=== PATIENT | female | born 2000 | race African-American/Black ===

== ENCOUNTER → 2020-02-21 14:14 | Outpatient (BNVA) | payer OTHER, SELFPAY | PROVIDERS: PCP Family Medicine; Visit Provider Advanced Practice Midwife | DX: Z76.89 Persons encountering health services in other specified circumstances (principal) ==

== ENCOUNTER 2020-02-26 13:48 | Outpatient (REF) | payer OTHER, SELFPAY ==
[2020-02-26 14:54] LABS: MANUAL DIFF FLAG NO
[2020-02-26 15:03] LABS: Basophils Absolute Auto 0.1 X10*3/uL (0.0-0.2); Basophils Percent Auto 0.7 % (0-2); Eosinophils Absolute Auto 0.1 X10*3/uL (0.0-0.4); Eosinophils Percent Auto 1.2 % (0-4); Hematocrit 34.6 % (37-47); Hemoglobin 11.9 g/dl (12.0-16.0); Imm Gran Abs Auto 0.03 X10*3/uL (0.00-0.03); Imm Gran Pct Auto 0.3 % (0.0-0.4); Lymphocytes Absolute Auto 2.7 X10*3/uL (1.2-4.9); Lymphocytes Percent Auto 29.1 % (20-40); Mean Corpuscular HGB Conc 34.4 g/dl (31.0-35.0); Mean Corpuscular Hemoglobin 30.1 pg (27.0-33.0); Mean Corpuscular Volume 87.6 fL (80-98); Mean Platelet Volume 9.8 fL (9.4-12.3); Monocytes Absolute Auto 0.6 X10*3/uL (0.1-1.2); Monocytes Percent Auto 6.9 % (2-11); Neutrophils Absolute Auto 5.6 X10*3/uL (2.0-8.3); Neutrophils Percent Auto 61.8 % (45-73); Platelet Count 275 X10*3/uL (160-400); Red Blood Count 3.95 X10*6/uL (4.20-5.50); Red Cell Distribution Width 12.4 % (11.0-16.0); White Blood Count 9.1 X10*3/uL (4.8-10.8)
[2020-02-26 15:24] LABS: Amphetamine Screen Urine Not Detected (Not Detect); Barbiturates, Urine Not Detected (Not Detect); Benzodiazepines Screen Urine Not Detected (Not Detect); Cannabinoid Screen Urine Not Detected (Not Detect); Cocaine Screen Urine Not Detected (Not Detect); Opiate Screen Urine Not Detected (Not Detect); Phencyclidine Screen Urine Not Detected (Not Detect)
[2020-02-27 08:35] LABS: HBsAGNum1 0.12 S/CO (0.00-0.99); HIV AB/AG Nonreactive (Nonreactive); HIV Num 1 0.09 S/CO (0.00-0.99); Hepatitis B Surface Antigen Negative (Negative)
[2020-02-27 09:17] LABS: Syphilis Screen Nonreactive (Nonreactive)
[2020-02-27 09:25] LABS: ~HepC Num1 0.07 S/CO (0.00-0.79); ~Hepatitis C Antibody Nonreactive (Nonreactive)
[2020-02-28 08:52] LABS: Rubella IgG Antibody 7.62 index; Toxoplasma IgG Antibody <7.20 IU/mL
[2020-02-28 13:14] LABS: Toxoplasma IgM Antibody <8.00 AU/mL
== END 2020-02-26 13:49 | disposition home or self-care (01) ==
LOC: HO.LAB 13:48
PROVIDERS: PCP Family Medicine; Visit Provider Advanced Practice Midwife
DX: Z34.90 Encounter for supervision of normal pregnancy, unspecified, unspecified trimester (principal)
CPT/HCPCS: 36415; 80307; 85025; 86762; 86777; 86778; 86780; 86787; 86803; 87086; 87147; 87340; 87389

== ENCOUNTER 2020-02-28 10:54 | Outpatient (REF) | payer OTHER, SELFPAY ==
[2020-02-28 18:22] LABS: CT PCR NOT DETECTED (Not Detect.); NG PCR NOT DETECTED (Not Detect.)
== END 2020-02-28 10:55 | disposition home or self-care (01) ==
LOC: HO.LAB 10:54
PROVIDERS: Visit Provider Advanced Practice Midwife
DX: Z34.80 Encounter for supervision of other normal pregnancy, unspecified trimester (principal); Z13.31 Encounter for screening for depression
CPT/HCPCS: 87491; 87591; 88142

== ENCOUNTER 2020-02-29 12:52 | Outpatient (REF) | payer OTHER, SELFPAY ==
--- NOTE | 2020-02-29 13:00 | US_ITS ---
EXAMINATION: OBSTETRICAL ULTRASOUND, FIRST TRIMESTER HISTORY: 20-year-old at 13.1 weeks of gestation First child born with cleft lip and palate NT screening COMPARISON: 09/18/2019 TECHNIQUE: Real time transabdominal imaging with color and M-mode Doppler. FINDINGS: A single, live IUP CRL of 67.6 mm c/w 13.1wks is noted. Heart Rate: 150 beats per minute. Normal yolk sac seen. NT was 1.9.mm. NB Present The embryo appears sonographically wnl for this GA. Both maternal ovaries are seen and appear normal. GESTATIONAL AGE: 1. Established GA: 13.1 wks 2. GA from AUA: 13.1 wks ESTIMATED DATE OF DELIVERY: 1. Established ZOLTAN: 09/04/2020 2. ZOLTAN from AUA: 09/04/2020 US/US OB 1T nuc measure IMPRESSION: 1. A single live IUP 2. Size equals dates 3. NT of 1.9 mm MFM Consultation: I reviewed the ultrasound findings along with significance of NT measurement. The NT of less than 3mm is generally reassuring. However, the sensitivity for T21 detection is only 60%. I reviewed the availability of serum aneuploidy screening which includes cell-free DNA and placental protein based tests. I discussed the sensitivity, false-positive rate, and other limitations associated with each test. I also reviewed the availability of invasive diagnostic tests that are associated small but definite risk of miscarriage. We also reviewed the differences between screening tests and diagnostic tests. After our discussion, she opted for the First trimester screening that is based on cell-free DNA or non-invasive testing (NIPT). She has a son who was born with cleft lip/palate. He is doing well after the repair. States that the cleft palate was larger than the clefting of the lip. I informed her that that we should be able to identify majority of cleft lip/palate on survey. Rarely isolated cleft palate, especially if it involves only the soft palate, can be missed on ultrasound. Given her history, the recurrence risk is approximately 3-5%. A follow up at 18-20 weeks for survey has been scheduled. Thank you very much for this referral. Majority of this visit was spent reviewing her care and counselling her in face to face time: Time spent 30 min.
== END 2020-02-29 12:53 | disposition home or self-care (01) ==
LOC: HO.US 12:52
PROVIDERS: Visit Provider Advanced Practice Midwife
DX: Z34.90 Encounter for supervision of normal pregnancy, unspecified, unspecified trimester (principal)
CPT/HCPCS: 76813

== ENCOUNTER 2020-04-11 08:18 | Outpatient (REF) | payer OTHER, SELFPAY ==
--- NOTE | 2020-04-11 08:31 | US_ITS ---
EXAMINATION: US OBSTETRICAL CLINICAL INFORMATION: 20-year-old at 19.1 weeks of gestation Suspected anomaly COMPARISON: 02/29/2020 TECHNIQUE: Real-time transabdominal ultrasound was performed using C1-5 megahertz transducer. FINDINGS: A single, active, fetus is seen in vertex presentation. The placenta is anterior without previa, and the amniotic fluid volume is wnl. MEASUREMENTS: 1. Biparietal Diameter: 3.95 cm; 18.1 wks 2. Occipital Frontal Diameter: 5.23 cm 3. Head Circumference: 15.6 cm; 18.4 wks 4. Abdominal Circumference: 13.4 cm; 19.0 wks 5. Femur Length: 2.7 cm; 18.3 wks 6. Humerus Length: 2.75 cm; 18.6 wks 7. Tibia Length: 2.5 cm; 18.6 wks 8. Ulna Length: 2.7 cm; 19.6 wks 9. Lateral ventricle: 0.6 cm 10. Cerebellum: 1.87 cm; 19.3 wks 11. Cisterna Magna: 0.43 cm 12. Nuchal Fold: 2.6 mm 13. Heart Rate: 140 beats per minute Rt ovary: normal Lt ovary: normal Cervical length 3.8 cm on T/A. GESTATIONAL AGE: 1. Established GA: 19.1 wks 2. GA from [facility]: 18.4 wks ESTIMATED DATE OF DELIVERY: 1. Established ZOLTAN: 09/04/2020 2. ZOLTAN from [facility]: 09/08/2020 ANATOMY: The visualized anatomy includes but not limited to: 1. Cranium: Normal 2. Intracranial anatomy: cavum septum pellucidi, lateral ventricles, choroid plexus, cerebellum, posterior fossa, third and fourth ventricles. 3. face: orbits, lip/palate, profile, nasal bone 4. Heart: four-chamber view of the heart, ventricular septum, foramen ovale, pulmonary vein, left and right outflow tracts, three-vessel view, 3 vessel trachea view, aortic and ductal arches, situs.. 5. Diaphragm: Normal 6. Abdominal wall: Normal 7. Cord Insertion: Normal 8. Spine: Cervical, thoracic, lumbar, sacral. 9. Stomach: Normal size and shape 10. Right Kidney: Normal 11. Left Kidney: Normal 12. 3 vessel cord: Normal 13. Upper extremity: Open hands, fifth digit. 14. Lower extremity: Tibia, fibula, bilateral feet. 15. Bladder: Normal 16. Genitalia: Female, patient aware US/US OB /maternal detail IMPRESSION: 1. Single, living, intrauterine with appropriate biometry. 2. Normal survey DISCUSSION: I reviewed today's ultrasound findings. We discussed the limitations of ultrasound in diagnosing aneuploidy and other congenital abnormalities. I reviewed the differences between screening test and diagnostic test. Amniocentesis was discussed and declined. She was informed that the baseline incidence of congenital abnormalities is approximately 3-5%. Not all these conditions are diagnosable in utero. RECOMMENDATIONS: 1. Follow-up when necessary. Thank you for allowing me to participate in her care. Visiting time 25 minutes. Majority of this visit was spent reviewing and discussing her care.
== END 2020-04-11 08:19 | disposition home or self-care (01) ==
LOC: HO.US 08:18
PROVIDERS: PCP Family Medicine; Visit Provider Advanced Practice Midwife
DX: Z34.80 Encounter for supervision of other normal pregnancy, unspecified trimester (principal); Z36.3 Encounter for antenatal screening for malformations
CPT/HCPCS: 76811

== ENCOUNTER → 2020-04-28 14:21 | Outpatient (BNVA) | payer OTHER, SELFPAY | PROVIDERS: PCP Family Medicine; Visit Provider Advanced Practice Midwife | DX: Z34.80 Encounter for supervision of other normal pregnancy, unspecified trimester (principal) | CPT/HCPCS: 81003; 99212 ==

== ENCOUNTER 2020-05-26 14:13 | Outpatient (REF) | payer OTHER, SELFPAY ==
[2020-05-26 15:54] LABS: Hematocrit 35.4 % (37-47); Hemoglobin 11.9 g/dl (12.0-16.0); Mean Corpuscular HGB Conc 33.6 g/dl (31.0-35.0); Mean Corpuscular Hemoglobin 29.6 pg (27.0-33.0); Mean Corpuscular Volume 88.1 fL (80-98); Mean Platelet Volume 9.8 fL (9.4-12.3); Platelet Count 247 X10*3/uL (160-400); Red Blood Count 4.02 X10*6/uL (4.20-5.50); Red Cell Distribution Width 12.7 % (11.0-16.0); White Blood Count 12.1 X10*3/uL (4.8-10.8)
[2020-05-26 16:21] LABS: Alanine Aminotransferase 20 U/L (0-31); Aspartate Amino Transferase 21 U/L (5-31); Blood Urea Nitrogen 5 mg/dL (9-16); Uric Acid 4.3 mg/dL (2.4-5.7)
[2020-05-26 16:43] LABS: Syphilis Screen Nonreactive (Nonreactive)
[2020-05-27 05:02] LABS: HIV AB/AG Nonreactive (Nonreactive); HIV Num 1 0.13 S/CO (0.00-0.99)
== END 2020-05-26 14:14 | disposition home or self-care (01) ==
LOC: HO.LAB 14:13
PROVIDERS: PCP Family Medicine; Visit Provider Advanced Practice Midwife
DX: Z34.80 Encounter for supervision of other normal pregnancy, unspecified trimester (principal)
CPT/HCPCS: 36415; 81003; 84450; 84460; 84520; 84550; 85027; 86780; 86850; 86900; 86901; 87389; 99212

== ENCOUNTER → 2020-06-17 14:29 | Outpatient (BNVA) | payer OTHER, SELFPAY | PROVIDERS: Visit Provider Advanced Practice Midwife | DX: Z34.90 Encounter for supervision of normal pregnancy, unspecified, unspecified trimester (principal) | CPT/HCPCS: 81003; 99212 ==

== ENCOUNTER 2020-06-20 07:59 | Outpatient (REF) | payer OTHER, SELFPAY ==
[2020-06-20 10:24] LABS: Glucose 1 Hour PP 50gm Dose 103 mg/dL (60-140)
== END 2020-06-20 08:00 | disposition home or self-care (01) ==
LOC: HO.LAB 07:59
PROVIDERS: Visit Provider Advanced Practice Midwife
DX: Z34.80 Encounter for supervision of other normal pregnancy, unspecified trimester (principal); Z3A.00 Weeks of gestation of pregnancy not specified
CPT/HCPCS: 36415

== ENCOUNTER → 2020-07-01 14:40 | Outpatient (BNVA) | payer OTHER, SELFPAY | PROVIDERS: Visit Provider Advanced Practice Midwife | DX: Z34.90 Encounter for supervision of normal pregnancy, unspecified, unspecified trimester (principal) | CPT/HCPCS: 81003; 99212 ==

== ENCOUNTER → 2020-07-15 14:31 | Outpatient (BNVA) | payer OTHER, SELFPAY | PROVIDERS: Visit Provider Advanced Practice Midwife | DX: Z34.83 Encounter for supervision of other normal pregnancy, third trimester (principal); Z3A.32 32 weeks gestation of pregnancy | CPT/HCPCS: 81003; 99212 ==

== ENCOUNTER 2020-07-17 07:49 | Outpatient (REF) | payer OTHER, SELFPAY ==
[2020-07-17 09:02] LABS: Hemoglobin 12.1 g/dl (12.0-16.0); Mean Corpuscular HGB Conc 33.6 g/dl (31.0-35.0); Mean Corpuscular Hemoglobin 29.4 pg (27.0-33.0); Mean Corpuscular Volume 87.6 fL (80-98); Platelet Count 246 X10*3/uL (160-400); Red Blood Count 4.11 X10*6/uL (4.20-5.50); Red Cell Distribution Width 13.1 % (11.0-16.0); White Blood Count 9.6 X10*3/uL (4.8-10.8)
[2020-07-17 09:39] LABS: Creatinine Urine 119.35 mg/dL; Total Protein Urine Random 12 mg/dL (<12)
[2020-07-17 09:46] LABS: Alanine Aminotransferase 14 U/L (0-31); Aspartate Amino Transferase 16 U/L (5-31); Blood Urea Nitrogen 7 mg/dL (9-16); Estimated Glomerular Filt Rate > 60; Uric Acid 4.7 mg/dL (2.4-5.7)
== END 2020-07-17 07:50 | disposition home or self-care (01) ==
LOC: HO.LAB 07:49
PROVIDERS: PCP Family Medicine; Visit Provider Advanced Practice Midwife
DX: Z34.80 Encounter for supervision of other normal pregnancy, unspecified trimester (principal)
CPT/HCPCS: 36415; 82565; 84156; 84450; 84460; 84520; 84550; 85027

== ENCOUNTER → 2020-07-29 14:56 | Outpatient (BNVA) | payer OTHER, SELFPAY | PROVIDERS: PCP Family Medicine; Visit Provider Advanced Practice Midwife | DX: Z34.93 Encounter for supervision of normal pregnancy, unspecified, third trimester (principal); Z3A.34 34 weeks gestation of pregnancy | CPT/HCPCS: 81003; 99212 ==

== ENCOUNTER 2020-08-12 14:36 | Outpatient (REF) | payer OTHER, SELFPAY ==
[2020-08-13 09:14] LABS: CT PCR NOT DETECTED (Not Detect.); NG PCR NOT DETECTED (Not Detect.)
== END 2020-08-12 14:37 | disposition home or self-care (01) ==
LOC: HO.LAB 14:36
PROVIDERS: PCP Family Medicine; Visit Provider Advanced Practice Midwife
DX: O26.893 Other specified pregnancy related conditions, third trimester (principal); R51.9 Headache, unspecified; O36.5930 Maternal care for other known or suspected poor fetal growth, third trimester, not applicable or unspecified; Z3A.36 36 weeks gestation of pregnancy
CPT/HCPCS: 81003; 87491; 87591; 99212

== ENCOUNTER 2020-08-19 10:25 | Outpatient (REF) | payer OTHER, SELFPAY ==
--- NOTE | ~2020-08-19 | US_ITS ---
EXAMINATION: US OBSTETRICAL FOLLOW UP WITH BIOPHYSICAL PROFILE CLINICAL INFORMATION: [id number] - Small for dates. COMPARISON: Obstetrical ultrasound 04/11/2020, 02/29/2020 TECHNIQUE: Real time transabdominal imaging with color and M-mode Doppler. POSITION: Cephalic PLACENTA: Anterior AMNIOTIC FLUID INDEX: 13.8 cm MEASUREMENTS: The initial dating ultrasound dated provided an estimated date of delivery of 09/04/2020. This would project today to a of 37 weeks 5 days. biometric measurements are as follows: Biparietal Diameter: 8.9 cm (36 weeks 0 days) Head Circumference: 33.1 cm (37 weeks 5 days) Abdominal Circumference: 32.9 cm (36 weeks 6 days) Femur Length: 6.8 cm (35 weeks 2 days) The standard deviation for the above measurements is +/- 3 weeks. ESTIMATED WEIGHT: The EFW is 2923 grams +/- 427 grams (6 lbs 7 oz +/- 15 oz). This is at the 27th percentile. BIOPHYSICAL PROFILE: Biophysical profile is performed over 30 minutes with assessment of breathing, gross body movement, tone, and qualitative amniotic fluid volume. Each matrix is scored 0 or 2, depending if the metric is present. Maximum total score possible is 8. Motion: 2 Tone: 2 Breathin Amniotic Fluid: 2 Total score: 8 HR: 150 bpm US/US OB follow up IMPRESSION: 1. Single intrauterine gestation in cephalic position with anterior placenta. 2. EFW: 2923 grams +/- 427 grams (6 lbs 7 oz +/- 15 oz). This is at the 27th percentile. 3. HARIS: 13.8 cm. 4. BPP score: 8 (scale 0-8).
== END 2020-08-19 10:26 | disposition home or self-care (01) ==
LOC: HO.US 10:25
PROVIDERS: Visit Provider Advanced Practice Midwife
DX: O36.5930 Maternal care for other known or suspected poor fetal growth, third trimester, not applicable or unspecified (principal)
CPT/HCPCS: 76816

== ENCOUNTER → 2020-08-21 10:29 | Outpatient (BNVA) | payer OTHER, SELFPAY | PROVIDERS: PCP Family Medicine; Visit Provider Advanced Practice Midwife | DX: Z34.93 Encounter for supervision of normal pregnancy, unspecified, third trimester (principal); Z3A.37 37 weeks gestation of pregnancy | CPT/HCPCS: 81003; 99212 ==

== ENCOUNTER → 2020-08-28 08:48 | Outpatient (BNVA) | payer OTHER, SELFPAY | PROVIDERS: PCP Family Medicine; Visit Provider Advanced Practice Midwife | DX: Z34.93 Encounter for supervision of normal pregnancy, unspecified, third trimester (principal); Z3A.38 38 weeks gestation of pregnancy | CPT/HCPCS: 81003; 90471; 90715; 99212 ==

== ENCOUNTER 2020-09-04 08:46 | Outpatient (REF) | payer OTHER, SELFPAY ==
[2020-09-04 10:23] LABS: Hematocrit 38.3 % (37-47); Hemoglobin 12.8 g/dl (12.0-16.0); Mean Corpuscular HGB Conc 33.4 g/dl (31.0-35.0); Mean Corpuscular Hemoglobin 28.6 pg (27.0-33.0); Mean Corpuscular Volume 85.7 fL (80-98); Mean Platelet Volume 9.8 fL (9.4-12.3); Platelet Count 254 X10*3/uL (160-400); Red Blood Count 4.47 X10*6/uL (4.20-5.50); Red Cell Distribution Width 12.9 % (11.0-16.0); White Blood Count 9.6 X10*3/uL (4.8-10.8)
[2020-09-04 10:46] LABS: Alanine Aminotransferase 16 U/L (0-31); Aspartate Amino Transferase 19 U/L (5-31); Blood Urea Nitrogen 6 mg/dL (9-16)
[2020-09-04 11:25] LABS: Creatinine Urine 20.81 mg/dL; Total Protein Urine Random < 7 mg/dL (<12)
== END 2020-09-04 08:47 | disposition home or self-care (01) ==
LOC: HO.LAB 08:46
PROVIDERS: PCP Family Medicine; Visit Provider Advanced Practice Midwife
DX: O26.893 Other specified pregnancy related conditions, third trimester (principal); R51.9 Headache, unspecified
CPT/HCPCS: 36415; 81003; 84156; 84450; 84460; 84520; 85027; 99212

== ENCOUNTER → 2020-09-05 08:58 | Outpatient (BNVA) | payer OTHER, SELFPAY | PROVIDERS: Visit Provider Advanced Practice Midwife | DX: Z34.83 Encounter for supervision of other normal pregnancy, third trimester (principal); Z3A.40 40 weeks gestation of pregnancy | CPT/HCPCS: 81003; 99212 ==

== ENCOUNTER → 2020-09-22 12:59 | Outpatient (BNVA) | payer OTHER, SELFPAY | PROVIDERS: Visit Provider Advanced Practice Midwife | DX: Z39.1 Encounter for care and examination of lactating mother (principal); Z30.011 Encounter for initial prescription of contraceptive pills | CPT/HCPCS: 99212 ==

== ENCOUNTER → 2020-11-17 08:58 | Outpatient (BNVA) | payer OTHER, SELFPAY | PROVIDERS: Visit Provider Advanced Practice Midwife | DX: Z39.1 Encounter for care and examination of lactating mother (principal); Z30.09 Encounter for other general counseling and advice on contraception; Z87.42 Personal history of other diseases of the female genital tract | CPT/HCPCS: 99212 ==

== ENCOUNTER 2020-11-19 17:39 | Emergency (ER) | payer OTHER, SELFPAY ==
[2020-11-19 17:41] VITALS: BMI 38.9
--- NOTE | 2020-11-19 17:42 | ECG_ITS ---
Test Reason : LEFT ARM PAIN Blood Pressure : / mmHG Vent. Rate : 088 BPM Atrial Rate : 088 BPM P-R Int : 148 ms QRS Dur : 072 ms QT Int : 348 ms P-R-T Axes : 040 046 030 degrees QTc Int : 421 ms Normal sinus rhythm Normal ECG No previous ECGs available Referred By: Generic ED Physician Electronically Signed By:LIAN EWBBER MD
== END 2020-11-19 19:51 | disposition left against medical advice (07) ==
PROVIDERS: Emergency Provider Emergency Medicine; PCP Family Medicine
DX: R07.9 Chest pain, unspecified (principal)
CPT/HCPCS: 93005; 99281; 99283

== ENCOUNTER 2022-08-20 17:12 | Emergency (ER) | payer OTHER, SELFPAY ==
--- NOTE | ~2022-08-20 | US_ITS ---
EXAMINATION: US ABDOMEN LIMITED CLINICAL INFORMATION: Right upper quadrant pain. COMPARISON: No similar priors. TECHNIQUE: Real-time imaging of the right upper quadrant abdominal viscera. FINDINGS: PANCREAS: Normal. LIVER: Normal. The liver is normal in size. The liver contour is normal. Parenchymal echogenicity is normal. No focal hepatic lesion. There is no intrahepatic biliary duct dilatation seen. GALLBLADDER: The gallbladder is decompressed and filled with stones, limiting evaluation of the gallbladder wall. No significant pericholecystic free fluid. Positive Cerna's sign. COMMON BILE DUCT: Normal in caliber measuring 0.3 cm in diameter. RIGHT KIDNEY: There is a 0.5 cm hyperechoic observation in the midpole. No hydronephrosis The kidney measures 11.4 cm in maximum dimension. FREE FLUID: None. US/US abdomen limited IMPRESSION: 1. The gallbladder is decompressed and filled with stones obscuring the gallbladder wall. There is a positive Cerna's sign. Acute cholecystitis is not excluded in the appropriate clinical context. 2. There is a 0.5 cm hyperechoic observation in the midpole of the right kidney with no twinkle artifact or posterior shadowing which could represent a small angiomyolipoma. Given its small size and patient's age, this could be safely followed with a renal ultrasound in one year.
[2022-08-20 17:35] VITALS: BP 156/62; PULSE 92; RESP 18; TEMP 36.8; O2SAT 99; BMI 38.6
--- NOTE | 2022-08-20 17:37 | ECG_ITS ---
Test Reason : epigastric pain Blood Pressure : / mmHG Vent. Rate : 071 BPM Atrial Rate : 071 BPM P-R Int : 142 ms QRS Dur : 068 ms QT Int : 376 ms P-R-T Axes : 039 048 037 degrees QTc Int : 408 ms Sinus rhythm with marked sinus arrhythmia Otherwise normal ECG When compared with ECG of 19-NOV-2020 17:55, No significant change was found Referred By: Roderick Wang Electronically Signed By:AILEEN CORREIA
--- NOTE | 2022-08-20 17:38 | ED_ITS ---
HPI - General Adult General Chief complaint: Abdominal Pain <Roderick Wang - Last Filed: 08/20/22 17:39> Stated complaint: chest pain, left arm pain, vomiting <Roderick Wang - Last Filed: 08/20/22 17:39> Time Seen by Provider: 08/20/22 21:13 <Roderick Wang - Last Filed: 08/20/22 17:39> Source: patient <Moris Thorne MD - Last Filed: 08/21/22 01:57> Mode of arrival: ambulatory <Moris Thorne MD - Last Filed: 08/21/22 01:57> Limitations: no limitations <Moris Thorne MD - Last Filed: 08/21/22 01:57> History of Present Illness HPI narrative: Patient otherwise healthy complaining of pain in upper abdomen earlier today followed by vomiting, had similar pain a month ago never had a ultrasound done no fever no chills no diarrhea no abdominal distension history of kidney stone no urinary complaints <Moris Thorne MD - Last Filed: 08/21/22 01:57> Related Data Home medications: Home Medications Medication Instructions Recorded Confirmed acetaminophen-caffeine 500 mg-65 1 tab PO Q6H PRN 02/21/20 11/17/20 mg tablet (Excedrin Tension Headache) Previous Rx's Medication Instructions Recorded levonorgestrel-ethinyl estradiol 1 tab PO DAILY #84 tabs 01/22/22 0.1 mg-20 mcg tablet ondansetron 4 mg disintegrating 4 mg PO Q6-8H PRN nausea and 08/21/22 tablet vomiting #7 tabs oxycodone 5 mg tablet 5 mg PO Q6H PRN pain #20 tabs 08/21/22 <Roderick Wang - Last Filed: 08/20/22 17:39> Allergies/adverse reactions: Allergies Allergy/AdvReac Type Severity Reaction Status Date / Time No Known Allergies Allergy Verified 01/22/22 11:41 <Roderick Wang - Last Filed: 08/20/22 17:39> Review of Systems Review of Systems: Yes all other systems are reviewed and are negative <Moris Thorne MD - Last Filed: 08/21/22 01:57> PMFSH Past Medical History Medical History: Medical History Personal history of endometriosis <Roderick Wang - Last Filed: 08/20/22 17:39> Family History Family History: Family History Mother History of ovarian cancer Hx of primary hypertension Hx of heart valve replacement with mechanical valve Father No problems noted. Brother No problems noted. Maternal Grandmother No problems noted. Maternal Grandfather No problems noted. Paternal Grandmother No problems noted. Paternal Grandfather No problems noted. <Roderick Wang - Last Filed: 08/20/22 17:39> Social History Social History: Social History Alcohol intake: former Patient Tobacco Use Status: Current everyday Tobacco user Tobacco use type: Cigarette Cigarettes Per Day: 3 Years Smoked: 5 Smoked in Last 30 Days: Yes Use of substances other than those prescribed or required for medical reasons: No Advance Directives: No Advance Directives Information Provided: No Patient : No Sexual orientation: Straight/Heterosexual Gender identity: Female <Roderick Wang - Last Filed: 08/20/22 17:39> Physical Exam ED Vital Signs: Vital Signs - 24 hr 08/20/22 17:35 08/20/22 23:00 Temperature 98.3 F 98.8 F Pulse Rate 92 69 Respiratory Rate 18 16 Blood Pressure 156/62 H 116/71 Pulse Oximetry 99 97 Oxygen Delivery Method Room Air Room Air BMI result Body Mass Index 38.6 <Roderick Wang - Last Filed: 08/20/22 17:39> Vital Signs - 24 hr 08/20/22 17:35 08/20/22 23:00 Temperature 98.3 F 98.8 F Pulse Rate 92 69 Respiratory Rate 18 16 Blood Pressure 156/62 H 116/71 Pulse Oximetry 99 97 Oxygen Delivery Method Room Air Room Air BMI result Body Mass Index 38.6 <Moris Thorne MD - Last Filed: 08/21/22 01:57> Appearance: Alert. Oriented X3. No acute distress. Eyes: PERRLA, No Nystagmus ENT: Pharynx normal. Oral Mucosa moist Neck: Normal inspection. Neck supple. CVS: Normal heart rate and rhythm. Pulses normal. Respiratory: No respiratory distress. Equal air entry bilateral, no wheezing/rales/rhonchi Abdomen: Soft , tender epigastric right upper quadrant, Cerna sign positive Bowel sounds are present, no mass palpable, no CVA tenderness Skin: Skin warm and dry. Normal skin color. Normal skin turgor. Extremities: No lower extremity edema. No calf tenderness Neuro: Oriented X 3. No motor deficit. <Moris Thorne MD - Last Filed: 08/21/22 01:57> Course Course Course Narrative: RME- 22-year-old female presents for evaluation upper abdominal pain mostly left to middle of her abdomen. Pain radiates up into her chest with associated nausea and vomiting. She reports that she has had episodes of this in the past plan for labs to start. Consider imaging as indicated <Roderick Wang - Last Filed: 08/20/22 17:39> Medications Administered Discontinued Medications Generic Name Dose Route Start Last Admin Trade Name Vishnu PRN Reason Stop Dose Admin Sodium Chloride 1,000 mls @ 999 mls/hr 08/21/22 00:46 08/21/22 00:55 Ns IV 08/21/22 01:46 999 mls/hr .Q1H1M ONE Administration Morphine Sulfate 4 mg 08/21/22 00:46 08/21/22 00:54 Morphine Sulfate 4 Mg/Ml Cartridge IVPUSH 08/21/22 00:47 4 mg ONCE ONE Administration Protocol Ondansetron HCl 4 mg 08/20/22 22:17 08/20/22 22:38 Ondansetron Odt 4 Mg Tab.Rapdis TRANSLINGU 08/20/22 22:18 4 mg ONCE ONE Administration Ondansetron HCl 4 mg 08/21/22 00:46 08/21/22 00:54 Ondansetron Hcl 4 Mg/2 Ml Vial IVPUSH 08/21/22 00:47 4 mg ONCE ONE Administration Oxycodone HCl 5 mg 08/20/22 22:17 08/20/22 22:39 Oxycodone Hcl Immed Release 5 Mg Tablet PO 08/20/22 22:18 5 mg ONCE ONE Administration <Roderick Wang - Last Filed: 08/20/22 17:39> Medications Administered Discontinued Medications Generic Name Dose Route Start Last Admin Trade Name Vishnu PRN Reason Stop Dose Admin Sodium Chloride 1,000 mls @ 999 mls/hr 08/21/22 00:46 08/21/22 00:55 Ns IV 08/21/22 01:46 999 mls/hr .Q1H1M ONE Administration Morphine Sulfate 4 mg 08/21/22 00:46 08/21/22 00:54 Morphine Sulfate 4 Mg/Ml Cartridge IVPUSH 08/21/22 00:47 4 mg ONCE ONE Administration Protocol Ondansetron HCl 4 mg 08/20/22 22:17 08/20/22 22:38 Ondansetron Odt 4 Mg Tab.Rapdis TRANSLINGU 08/20/22 22:18 4 mg ONCE ONE Administration Ondansetron HCl 4 mg 08/21/22 00:46 08/21/22 00:54 Ondansetron Hcl 4 Mg/2 Ml Vial IVPUSH 08/21/22 00:47 4 mg ONCE ONE Administration Oxycodone HCl 5 mg 08/20/22 22:17 08/20/22 22:39 Oxycodone Hcl Immed Release 5 Mg Tablet PO 08/20/22 22:18 5 mg ONCE ONE Administration <Moris Thorne MD - Last Filed: 08/21/22 01:57> Medical Decision Making Medical Decision Making [facility] Narrative: Patient with acute biliary colic with gallstones no signs of cholecystitis at this time patient feeling much better after IV fluids and pain medication pat ient advised to follow-up surgeon for possible surgery <Moris Thorne MD - Last Filed: 08/21/22 01:57> Lab Data [facility] Lab Attestation statement: I reviewed the patient's lab results. <Moris Thorne MD - Last Filed: 08/21/22 01:57> Result Diagrams: 08/20/22 18:52 08/20/22 18:52 <Roderick Wang - Last Filed: 08/20/22 17:39> Labs: Lab Results 08/20/22 08/20/22 08/20/22 Range/Units 18:52 18:52 18:52 WBC 12.8 H (4.8-10.8) X10*3/uL RBC 4.71 (4.20-5.50) X10*6/uL Hgb 14.0 (12.0-16.0) g/dl Hct 41.0 (37.0-47.0) % MCV 87.0 (80.0-98.0) fL MCH 29.7 (27.0-33.0) pg MCHC 34.1 (31.0-35.0) g/dl RDW 12.7 (11.0-16.0) % Plt Count 241 (160-400) X10*3/uL MPV 9.8 (9.4-12.3) fL Immature Gran % (Auto) 0.3 (0.0-0.4) % Neut % (Auto) 80.4 H (45-73) % Lymph % (Auto) 12.0 L (20-40) % Weber % (Auto) 6.3 (2-11) % Eos % (Auto) 0.6 (0-4) % Baso % (Auto) 0.4 (0-2) % Lymph # (Auto) 1.5 (1.2-4.9) X10*3/uL Weber # (Auto) 0.8 (0.1-1.2) X10*3/uL Eos # (Auto) 0.1 (0.0-0.4) X10*3/uL Baso # (Auto) 0.1 (0.0-0.2) X10*3/uL Abs Immat Gran (auto) 0.04 H (0.00-0.03) X10*3/uL Absolute Neuts (auto) 10.3 H (2.0-8.3) x10*3/uL Absolute Nucleated RBC 0.000 (0.0-0.012) X10*3/uL Nucleated RBC % (auto) 0.0 (0.0-0.2) /100WBC Sodium 143 (135-145) mmol/L Potassium 4.5 (3.3-5.1) mmol/L Chloride 109 H (96-108) mmol/L Carbon Dioxide 24 (22-29) mmol/L Anion Gap 15 (12-20) BUN 10 (9-16) mg/dL Creatinine 0.69 (0.5-1.4) mg/dL Estim Creat Clear Calc 147.4 Estimated GFR > 60 Random Glucose 94 (60-115) mg/dL Calcium 9.4 (8.4-10.2) mg/dL Total Bilirubin 0.7 (0.0-1.0) mg/dL AST 27 (5-31) U/L ALT 24 (0-31) U/L Alkaline Phosphatase 93 (39-117) U/L Troponin I High Sens < 2.7 (<3.5-17.0) ng/L Total Protein 7.2 (6.5-8.0) g/dL Albumin 4.4 (3.5-5.0) g/dL Lipase 24 (8-78) U/L Urine Test (NEGATIVE) 08/20/22 Range/Units 19:26 WBC (4.8-10.8) X10*3/uL RBC (4.20-5.50) X10*6/uL Hgb (12.0-16.0) g/dl Hct (37.0-47.0) % MCV (80.0-98.0) fL MCH (27.0-33.0) pg MCHC (31.0-35.0) g/dl RDW (11.0-16.0) % Plt Count (160-400) X10*3/uL MPV (9.4-12.3) fL Immature Gran % (Auto) (0.0-0.4) % Neut % (Auto) (45-73) % Lymph % (Auto) (20-40) % Weber % (Auto) (2-11) % Eos % (Auto) (0-4) % Baso % (Auto) (0-2) % Lymph # (Auto) (1.2-4.9) X10*3/uL Weber # (Auto) (0.1-1.2) X10*3/uL Eos # (Auto) (0.0-0.4) X10*3/uL Baso # (Auto) (0.0-0.2) X10*3/uL Abs Immat Gran (auto) (0.00-0.03) X10*3/uL Absolute Neuts (auto) (2.0-8.3) x10*3/uL Absolute Nucleated RBC (0.0-0.012) X10*3/uL Nucleated RBC % (auto) (0.0-0.2) /100WBC Sodium (135-145) mmol/L Potassium (3.3-5.1) mmol/L Chloride (96-108) mmol/L Carbon Dioxide (22-29) mmol/L Anion Gap (12-20) BUN (9-16) mg/dL Creatinine (0.5-1.4) mg/dL Estim Creat Clear Calc Estimated GFR Random Glucose (60-115) mg/dL Calcium (8.4-10.2) mg/dL Total Bilirubin (0.0-1.0) mg/dL AST (5-31) U/L ALT (0-31) U/L Alkaline Phosphatase (39-117) U/L Troponin I High Sens (<3.5-17.0) ng/L Total Protein (6.5-8.0) g/dL Albumin (3.5-5.0) g/dL Lipase (8-78) U/L Urine Test NEGATIVE (NEGATIVE) <Roderick Wang - Last Filed: 08/20/22 17:39> Lab Results 08/20/22 08/20/22 08/20/22 Range/Units 18:52 18:52 18:52 WBC 12.8 H (4.8-10.8) X10*3/uL RBC 4.71 (4.20-5.50) X10*6/uL Hgb 14.0 (12.0-16.0) g/dl Hct 41.0 (37.0-47.0) % MCV 87.0 (80.0-98.0) fL MCH 29.7 (27.0-33.0) pg MCHC 34.1 (31.0-35.0) g/dl RDW 12.7 (11.0-16.0) % Plt Count 241 (160-400) X10*3/uL MPV 9.8 (9.4-12.3) fL Immature Gran % (Auto) 0.3 (0.0-0.4) % Neut % (Auto) 80.4 H (45-73) % Lymph % (Auto) 12.0 L (20-40) % Weber % (Auto) 6.3 (2-11) % Eos % (Auto) 0.6 (0-4) % Baso % (Auto) 0.4 (0-2) % Lymph # (Auto) 1.5 (1.2-4.9) X10*3/uL Weber # (Auto) 0.8 (0.1-1.2) X10*3/uL Eos # (Auto) 0.1 (0.0-0.4) X10*3/uL Baso # (Auto) 0.1 (0.0-0.2) X10*3/uL Abs Immat Gran (auto) 0.04 H (0.00-0.03) X10*3/uL Absolute Neuts (auto) 10.3 H (2.0-8.3) x10*3/uL Absolute Nucleated RBC 0.000 (0.0-0.012) X10*3/uL Nucleated RBC % (auto) 0.0 (0.0-0.2) /100WBC Sodium 143 (135-145) mmol/L Potassium 4.5 (3.3-5.1) mmol/L Chloride 109 H (96-108) mmol/L Carbon Dioxide 24 (22-29) mmol/L Anion Gap 15 (12-20) BUN 10 (9-16) mg/dL Creatinine 0.69 (0.5-1.4) mg/dL Estim Creat Clear Calc 147.4 Estimated GFR > 60 Random Glucose 94 (60-115) mg/dL Calcium 9.4 (8.4-10.2) mg/dL Total Bilirubin 0.7 (0.0-1.0) mg/dL AST 27 (5-31) U/L ALT 24 (0-31) U/L Alkaline Phosphatase 93 (39-117) U/L Troponin I High Sens < 2.7 (<3.5-17.0) ng/L Total Protein 7.2 (6.5-8.0) g/dL Albumin 4.4 (3.5-5.0) g/dL Lipase 24 (8-78) U/L Urine Test (NEGATIVE) 08/20/22 Range/Units 19:26 WBC (4.8-10.8) X10*3/uL RBC (4.20-5.50) X10*6/uL Hgb (12.0-16.0) g/dl Hct (37.0-47.0) % MCV (80.0-98.0) fL MCH (27.0-33.0) pg MCHC (31.0-35.0) g/dl RDW (11.0-16.0) % Plt Count (160-400) X10*3/uL MPV (9.4-12.3) fL Immature Gran % (Auto) (0.0-0.4) % Neut % (Auto) (45-73) % Lymph % (Auto) (20-40) % Weber % (Auto) (2-11) % Eos % (Auto) (0-4) % Baso % (Auto) (0-2) % Lymph # (Auto) (1.2-4.9) X10*3/uL Weber # (Auto) (0.1-1.2) X10*3/uL Eos # (Auto) (0.0-0.4) X10*3/uL Baso # (Auto) (0.0-0.2) X10*3/uL Abs Immat Gran (auto) (0.00-0.03) X10*3/uL Absolute Neuts (auto) (2.0-8.3) x10*3/uL Absolute Nucleated RBC (0.0-0.012) X10*3/uL Nucleated RBC % (auto) (0.0-0.2) /100WBC Sodium (135-145) mmol/L Potassium (3.3-5.1) mmol/L Chloride (96-108) mmol/L Carbon Dioxide (22-29) mmol/L Anion Gap (12-20) BUN (9-16) mg/dL Creatinine (0.5-1.4) mg/dL Estim Creat Clear Calc Estimated GFR Random Glucose (60-115) mg/dL Calcium (8.4-10.2) mg/dL Total Bilirubin (0.0-1.0) mg/dL AST (5-31) U/L ALT (0-31) U/L Alkaline Phosphatase (39-117) U/L Troponin I High Sens (<3.5-17.0) ng/L Total Protein (6.5-8.0) g/dL Albumin (3.5-5.0) g/dL Lipase (8-78) U/L Urine Test NEGATIVE (NEGATIVE) <Moris Thorne MD - Last Filed: 08/21/22 01:57> Radiology Impression Discussion of test interpretation with radiology: I have reviewed the radiologist's reading. <Moris Thorne MD - Last Filed: 08/21/22 01:57> Radiologist Impression: US/US abdomen limited IMPRESSION: 1.? The gallbladder is decompressed and filled with stones obscuring the gallbladder wall. There is a positive Cerna's sign. Acute cholecystitis is not excluded in the appropriate clinical context. 2.? There is a 0.5 cm hyperechoic observation in the midpole of the right kidney with no twinkle artifact or posterior shadowing which could represent a small angiomyolipoma. Given its small size and patient's age, this could be safely followed with a renal ultrasound in one year. <Moris Thorne MD - Last Filed: 08/21/22 01:57> Discharge Plan Discharge Clinical Impression: Biliary colic, Gallstone <Roderick Wang - Last Filed: 08/20/22 17:39> Patient Disposition: Home, Self-Care <Roderick Wang - Last Filed: 08/20/22 17:39> Instructions: Biliary Colic (ED), Gallstones (ED) <Roderick Wang - Last Filed: 08/20/22 17:39> Additional Instructions: Avoid fried food Pain medication and nausea medication as prescribed Follow-up with surgeon Report to ER if worsening of the pain <Roderick Wang - Last Filed: 08/20/22 17:39> Prescriptions: New ondansetron 4 mg tablet,disintegrating 4 mg PO Q6-8H PRN (Reason: nausea and vomiting) Qty: 7 0RF oxycodone 5 mg tablet 5 mg PO Q6H PRN (Reason: pain) Qty: 20 0RF Rx Instructions: Partial Fill upon patient request. No Action Excedrin Tension Headache 500-65 mg tablet 1 tab PO Q6H PRN levonorgestrel-ethinyl estrad 0.1-20 mg-mcg tablet 1 tab PO DAILY Qty: 84 4RF <Roderick Wang - Last Filed: 08/20/22 17:39> Referrals: Sloan Muñoz MD [Physician] - 1 week <Roderick Wang - Last Filed: 08/20/22 17:39>
[2022-08-20 18:55] LABS: MANUAL DIFF FLAG NO
[2022-08-20 18:57] LABS: Basophils Absolute Auto 0.1 X10*3/uL (0.0-0.2); Basophils Percent Auto 0.4 % (0-2); Eosinophils Absolute Auto 0.1 X10*3/uL (0.0-0.4); Eosinophils Percent Auto 0.6 % (0-4); Imm Gran Abs Auto 0.04 X10*3/uL (0.00-0.03); Imm Gran Pct Auto 0.3 % (0.0-0.4); Lymphocytes Absolute Auto 1.5 X10*3/uL (1.2-4.9); Mean Corpuscular HGB Conc 34.1 g/dl (31.0-35.0); Mean Corpuscular Hemoglobin 29.7 pg (27.0-33.0); Mean Platelet Volume 9.8 fL (9.4-12.3); Monocytes Absolute Auto 0.8 X10*3/uL (0.1-1.2); Monocytes Percent Auto 6.3 % (2-11); Neutrophils Absolute Auto 10.3 x10*3/uL (2.0-8.3); Neutrophils Percent Auto 80.4 % (45-73); Platelet Count 241 X10*3/uL (160-400); Red Blood Count 4.71 X10*6/uL (4.20-5.50); Red Cell Distribution Width 12.7 % (11.0-16.0); White Blood Count 12.8 X10*3/uL (4.8-10.8)
--- NOTE | 2022-08-20 19:12 | MHC.EDTECH ---
PT BLOOD DRAWN AND SENT TO LAB ,EKG DONE TAKEN AND WAS READ BY PROVIDER .
[2022-08-20 19:14] LABS: Alanine Aminotransferase 24 U/L (0-31); Albumin Level 4.4 g/dL (3.5-5.0); Alkaline Phosphatase 93 U/L (39-117); Anion Gap 15 (12-20); Aspartate Amino Transferase 27 U/L (5-31); Bilirubin Total 0.7 mg/dL (0.0-1.0); Blood Urea Nitrogen 10 mg/dL (9-16); Calcium 9.4 mg/dL (8.4-10.2); Carbon Dioxide 24 mmol/L (22-29); Chloride 109 mmol/L (96-108); Creatinine Clr Calc Pharmacy 147.4; Estimated Glomerular Filt Rate > 60; Glucose Random 94 mg/dL (60-115); Lipase 24 U/L (8-78); Potassium 4.5 mmol/L (3.3-5.1); Sodium 143 mmol/L (135-145); Total Protein 7.2 g/dL (6.5-8.0)
[2022-08-20 19:24] LABS: Troponin-I High Sensitivity < 2.7 ng/L (<3.5-17.0)
--- NOTE | 2022-08-20 19:27 | MHC.EDTECH ---
PT URINE SAMPLE COLLECTED AND SENT TO LAB .
[2022-08-20 19:38] LABS: UPreg QC Valid YES
[2022-08-20 19:40] LABS: Urine Pregnancy NEGATIVE (NEGATIVE)
[2022-08-20] MEDS: Ondansetron ODT 4 MG TAB.RAPDIS TRANSLINGU (22:38)
[2022-08-20] MEDS: oxyCODONE HCl Immed Release 5 MG TABLET PO (22:39)
[2022-08-20 23:00] VITALS: BP 116/71; PULSE 69; RESP 16; TEMP 37.1; O2SAT 97
--- NOTE | 2022-08-20 23:20 | PC.NURSE ---
this rn and additional rn unable to place iv. dr rodney made aware. iv medications cancelled PO medications ordered at this time. pt medicated according to jun. pt tolerating PO liquids well. reports no nausea at this time. pt calm and cooperative resting on stretcher with lights dimmed
[2022-08-21] MEDS: ondansetron HCL 4 MG/2 ML VIAL IVPUSH (00:54)
[2022-08-21] MEDS: Morphine Sulfate 4 MG/ML CARTRIDGE IVPUSH (00:54)
[2022-08-21] MEDS: 0.9 % Sodium Chloride 1,000 ML 999 ML IV (00:55)
--- NOTE | 2022-08-21 01:00 | PC.NURSE ---
ed provider dr rodney placed IV in right hand after further need for medication and IVF. pt tolerated well. pt medicated according to jun. pt resting on stretcher provided with warm blanket and additional pillow
[2022-08-21 02:07] VITALS: BP 119/64; PULSE 78; RESP 14; TEMP 36.9; O2SAT 99
--- NOTE | 2022-08-21 02:18 | PC.NURSE ---
pt ambulatory at discharge. vss. skin pwd. iv removed at time of discharge. pt reports being able to sleep. denies n/v at this time. pt reports increased pain since waking up. pt provided with discharge packet. pt verbalized understanding of discharge plan
== END 2022-08-21 02:28 | disposition home or self-care (01) ==
PROVIDERS: Physician Assistant; Emergency Provider Internal Medicine
DX: K80.50 Calculus of bile duct without cholangitis or cholecystitis without obstruction (principal); K80.20 Calculus of gallbladder without cholecystitis without obstruction; I49.8 Other specified cardiac arrhythmias; R07.89 Other chest pain; M79.602 Pain in left arm; F17.210 Nicotine dependence, cigarettes, uncomplicated; Z79.899 Other long term (current) drug therapy; Z71.6 Tobacco abuse counseling
CPT/HCPCS: 36415; 76705; 80053; 81025; 83690; 84484; 85025; 93005; 96361; 96374; 96375; 99284; 99285; J2270; J2405

== ENCOUNTER 2025-02-08 08:37 | Outpatient (AMB) | payer OTHER, SELFPAY ==
--- NOTE | 2025-02-08 08:39 | A.OFFPC_ITS ---
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 Is last menstrual period known: Yes Last menstrual period: 12/13/24 Post menopausal: No Patient : No Allergies No Known Allergies Allergy (Verified 02/08/25 15:34) Medication List - Last Reconciled 02/08/25 by Miguel Felder CNP No Known Home Meds Tobacco use date assessed: 02/08/25 Dental Screening Dental Screen Date: 02/08/25 Did you have a dental visit in the last 12 months?: Yes Did you have a dental problem in the last 6 months where you did not have access to dental care?: No Was dental information given to patient?: Patient has dentist HPI HPI Comments History of Present Illness Details 25-year-old female presents to [facility] care. She is not on prescription medication. Prior PCP? - [facility] Last office visit/2019 Last Labs - 07/2022 Acute issue(s) - Reports irregular menstrual cycles whi ch are regular bleeding. Ongoing for the past 3 years. Her last cycle was in 12/13/2024. She adamantly denies being preg javier. Have been going to [facility] for the past 3 years, trial different contraceptives without improvement. Past Medical History - Myopia, obesity, endometriosis, gallbl adder disease Surgical History - None Family History - Dad: Alcohol abuse - Mom: Asthma, cardiovascular disease, hypertension, ovarian cancer, heart valve replacement with mechanical valve, hypertension, alcohol abuse - MGM: Cardiovascular disease, hyperten jessika, cancer (unknown type) - MGF: Hypertension, hyperlipidemia, ca ncer (unknown type) Social History - Former smoker, smoked 2 cigarettes x 6 years, quit 6 years ago. Vapes non- nicotine daily, have been vaping x 4 months. Drinks 2-3 beers twice weekly. Denies recreational drug use - Has been making healthy dietary choice s recently. Exercises twice weekly. Requests referral to weight management. Sleep is poor due to working night shifts - She notes that she is sexually active, in a monogamous relationship, and has no concern for STDs Health maintenance - Last eye exam was within the past 1 ye ar with [facility] but usually follows [facility]. Advised to sign a release for her PCP to obtain her ophthalmology record - Last dental visit was 6 months ago - Last Tdap was 2 years ago. Record not currently available - Has not been vaccinated for the flu ; declines vaccination - Last pap smear test was in 01/2020 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 Specialists - None COUNT INCLUDES [facility] Medical History (Updated 02/08/25 @ 09:45 by Miguel Felder CNP) Gall bladder disease Personal history of endometriosis Family History (Updated 02/08/25 @ 09:00 by Nava Jung MA) Mother History of ovarian cancer Hx of primary hypertension Hx of heart valve replacement with mechanical valve Alcohol abuse Asthma High blood pressure Cardiovascular disease Father Alcohol abuse Brother Asthma Testicular cancer Maternal Grandmother High blood pressure Cardiovascular disease Cancer Maternal Grandfather High blood pressure High cholesterol Cancer Paternal Grandmother High blood pressure Skin cancer Paternal Grandfather Cancer Social History (Updated 02/08/25 @ 08:47 by Nava Jung MA) Housing: House Alcohol intake: former Patient Tobacco Use Status: Former Tobacco user Tobacco use type: Cigarette Cigarettes Per Day: 3 Years Smoked: 5 e-Cigarette/Vaping Use: Currently Using Second Hand Smoke Exposure: No service: No Current occupational status: employed 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 Current occupational exposures/hazards: No Sexual orientation: Straight/Heterosexual Gender identity: Female Cognitive needs: No Hearing needs: No Vision needs: Yes Female Reproductive History Menstrual Age of Menarche: 12 Date of last menstrual period: 12/13/24 Questionnaire PHQ-9 Over the last 2 weeks, how often have you been bothered by any of the following problems? 1. Little interest or pleasure in doing things: not at all 2. Feeling down, depressed, or hopeless: not at all 3. Trouble falling or staying asleep, or sleeping too much: not at all 4. Feeling tired or having little energy: more than half the days 5. Poor appetite or overeating: several days 6. Feeling bad about yourself - or that you are a failure or have let yourself or your family down: several days 7. Trouble concentrating on things, such as reading the newspaper or watching television: not at all 8. Moving or speaking so slowly that other people could have noticed. Or the opposite - being so fidgety or restless that you have been moving around a lot more than usual: not at all 9. Thoughts that you would be better off or of hurting yourself in some way: not at all Total score: 4 Depression Screening Interpretation: Negative Depression Screening Done: Yes 90599 - PHQ-9 Billing: Yes Source: Developed by Drs. Sotero Medrano, Haylie Murillo, Ceferino Vaughn and colleagues, with an educational judy from [employer]. Thrive Questionnaire Date Thrive assessed: 02/08/25 I am a: Patient What is your living situation today?: I have a steady place to live Within the past 12 months, did the food you bought not last and you didn't have the money to get more?: Sometimes True Within the past 12 months, did you worry whether your food would run out before you got money to buy more?: Sometimes True Do you have trouble paying for medicines?: No Do you have trouble getting transportation to medical appointments?: No Do you have trouble paying your heating and electricity bill?: No Do you have trouble taking care of your child, family member or friend?: No Do you have trouble with day-to-day activities such as bathing, preparing meals, shopping, managing finances, etc.?: No Are you currently unemployed and looking for a job?: No Are you interested in more education?: No Please select the resources that you would like help with: None Currently or been in a relationship where the following occur: No concerns reported THRIVE Score: 2 AUDIT C Alcohol Use Questionnaire (AUDIT-C) 1. How often do you have a drink containing alcohol?: 2-4 times a month 2. How many drinks containing alcohol do you have on a typical day when you are drinking?: 3 or 4 3. How often do you have six or more drinks on one occasion?: Never Total Score: 3 Score Reviewed/Action Taken: Yes CLEMENCIA-7 AMB Questionnaire CLEMENCIA-7 Date CLEMENCIA - 7 assessed: 02/08/25 Feeling nervous, anxious, or on edge: 1 = Several days Not being able to stop or control worryin = Several days Worrying too much about different things: 1 = Several days Trouble relaxin = Several days Being so restless that it is hard to sit still: 1 = Several days Becoming easily annoyed or irritable: 1 = Several days Feeling afraid as if something awful might happen: 0 = Not at all Total CLEMENCIA-7 score (0-4 normal; 5-9 mild; 10-14 moderate; 15-21 severe): 6 Source: Developed by Drs. Sotero Medrano, Haylie Murillo, Ceferino Vaughn and colleagues, with an educational judy from [employer]. CLEMENCIA-7 Assessment Billing CLEMENCIA-7 Assessment Tool: CLEMENCIA-7 Assessment 81260 Review of Systems Const Details: Denies chills, Denies fatigue, Denies fever(s), Denies headache(s) and Denies weakness HEENT Denies change in vision, Denies dizziness, Denies headache(s), Denies hearing loss, Denies nasal congestion, Denies sinus pain, Denies sinus pressure and Denies sore throat Card Denies chest pain, Denies lightheadedness, Denies dyspnea and Denies other (palpitations) Resp Denies cough, Denies dyspnea and Denies wheezing GI Denies abdominal pain, Denies melena, Denies hematochezia, Denies change in bowel habits, Denies dyspepsia and Denies nausea Denies hematuria and Denies dysuria Musc Denies abnormal gait, Denies myalgias, Denies arthralgias, Denies numbness and Denies tingling Skin/Breast Denies rash, Denies unusual bruising and Denies wounds Neuro Denies abnormal gait, Denies dizziness, Denies headache(s), Denies memory loss, Denies numbness, Denies Sensory deficit (Neuro), Denies tingling and Denies weakness Psych Denies anxiety, Denies depression and Denies memory loss Endo Denies cold intolerance, Denies fatigue, Denies heat intolerance, Denies polydipsia and Denies polyuria Cresencio/Lymph Denies easy bleeding and Denies easy bruising Aller/Immun Denies wheezing Physical exam (Primary Care) Vital Signs: Last Vital Signs Temp 98.0 F 02/08/25 08:47 Pulse 74 02/08/25 08:47 Resp 16 02/08/25 08:47 BP 128/71 02/08/25 08:47 Pulse Ox 100 1010/25 08:47 Oxygen Delivery Method Room Air 02/08/25 08:47 BMI result Body Mass Index 41.6 Tobacco/Smoking Status: Tobacco use Status Tobacco use date assessed 02/08/25 02/08/25 08:47 Patient Tobacco Use Status Former Tobacco user 02/08/25 08:47 Tobacco use type Cigarette 02/08/25 08:47 e-Cigarette/Vaping Use Currently Using 02/08/25 08:47 PHQ-9: PHQ-9 Score PHQ-9: Total score 4 02/08/25 09:39 Depression Screening Interpretation: Negative Thrive Assessment: Date of Thrive Assessment Date Thrive assessed 02/08/25 02/08/25 08:43 Currently or been in a relationship where the following occur: No concerns reported Const Other: General: no acute distress, well developed, alert and awake Nutritional Appearance: well nourished Orientation/consciousness: patient oriented x3 HENMT Head: Yes normocephalic and Yes atraumatic Ears: hearing grossly normal bilaterally and TM's normal bilaterally General nose exam: Normal external nose present and Normal nares present Mouth: Normal oral and palatal mucosa present and moist mucous membranes Teeth and gingiva: dentition normal Throat: Yes oropharynx normal Eyes Pupils: Equal, round and reactive pupils present and Pupil accommodation reflex normal EOM: EOMs intact bilaterally Neck Neck: Yes normal visual inspection, Yes no lymphadenopathy and Yes trachea midline Thyroid: Thyroid normal Carotids: no bruits Lymphatic: no lymphadenopathy noted Chest Chest palpation & inspection: normal inspection of the chest Resp Effort & Inspection: normal respiratory effort Auscultation: clear to auscultation bilaterally Cardio Rate: regular rate Rhythm: regular rhythm Heart sounds: S1 normal heart sound present, S2 normal heart sound present, no gallops, no murmurs and no rubs Bruits: no abdominal aortic bruits and no carotid bruits GI Palpation (GI): No Abdominal aortic bruit present, Soft to palpation, nontender, No hepatosplenomegaly present and No Rebound tenderness present Auscultation: normal bowel sounds General: Yes no CVA tenderness Back/Spine/Pelvis Back: no CVA tenderness Cervical Spine: cervical ROM normal and No Cervical spine tenderness Thoracic/Lumbar Spine: thoraco-lumbar ROM normal, No pain with thoraco-lumbar ROM, No thoracic spinal tenderness and No lumbar spinal tenderness Skin General: warm and dry. Normal skin color. Normal skin turgor Lesions: no lesions Rashes: no rashes Trauma: no lacerations or abrasions Wounds: no wounds Nails: normal Neuro General: patient oriented x3, gait normal and CN's II-XI intact bilaterally Cranial nerves: Yes Equal, round and reactive pupils present Cognition (Neuro): normal cognition Gait exam (Neuro): Normal gait present Motor exam (neuro): 5/5 motor strength present throughout Sensory Exam: No Sensory deficit (Neuro) Deep tendon reflexes (DTR's): Right patellar reflex intensity grade: 2+ and Left patellar reflex intensity grade: 2+ Extrem General: Yes normal to inspection, No edema and No calf tenderness Psych Appearance: grossly normal Affect: normal affect Attitude: cooperative Thought process: Normal thought process present Coding Level of Care Code New Pt Level 4 (30005) New Pt Prev Care 18-39yr(29284 Diagnoses Normal physical examination, routine Z00.00 Morbid obesity with BMI of 40.0-44.9, adult E66.01; Z68.41 Irregular menstrual cycle N92.6 Engages in vaping Z72.89 Pap smear for cervical cancer screening Z12.4 Laboratory tests ordered as part of a complete physical exam (CPE) Z00.00 Additional Codes CLEMENCIA-7 Assessment Billing - CLEMENCIA-7 Assessment Tool: CLEMENCIA-7 Assessment 74029 ([id number]) PHQ-9 - 01309 - PHQ-9 Billing: Yes ([id number]) Assessment & Plan Assessment & Plan (1) Normal physical examination, routine: Code(s): Z00.00 - Encounter for general adult medical examination without abnormal findings Category: Medical Plan: No significant functional limitation noted. Healthy diet and routine exercise encouraged. Perform lab work as planned and follow-up for a telehealth visit for labs review in 2-4 weeks. Return sooner with symptoms or concerns. Verbalized understanding and agreed with the plan. (2) Morbid obesity with BMI of 40.0-44.9, adult: Code(s): E66.01 - Morbid (severe) obesity due to excess calories; Z68.41 - Body mass index [BMI] 40.0-44.9, adult Category: Medical Plan: She currently weighs 242 lb, BMI is 41.6. She recently has been making healthy dietary choices and exercising routinely. Healthy diet and routine exercise encouraged. Referred to [facility] weight management clinic. Follow-up as needed. Verbalized understanding and agreed with the plan. (3) Irregular menstrual cycle: Code(s): N92.6 - Irregular menstruation, unspecified Category: Medical Plan: Reports irregular menstrual cycles which are regular bleeding. Ongoing for the past 3 years. Her last cycle was in 12/13/2024. She adamantly denies being . Have been going to [facility] for the past 3 years, trial different contraceptives without improvement. No acute symptoms at this time. 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 (4) Engages in vaping: Code(s): Z72.89 - Other problems related to lifestyle Category: Medical Plan: She has been vaping non-nicotine daily for the past 4 months. Instructed on the health risks and complications of vaping and cessation encouraged. Verbalized understanding and agreed with the plan. 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 Referred to [facility] mechanical systems engineer for a Pap smear test. (6) Laboratory tests ordered as part of a complete physical exam (CPE): Code(s): Z00.00 - Encounter for general adult medical examination without abnormal findings Category: Medical Plan: Fasting labs ordered as part of a complete physical exam. Advised to fast for at least 10 hours before getting labs drawn. May drink water Verbalized understanding and agreed with treatment plan. Orders: Orders Comprehensive Wolf. Panel Fast Today Z00.00 - Encounter for general adult medical examination without abnormal findings Lipid Panel Today Z00.00 - Encounter for general adult medical examination without abnormal findings TSH reflex Free T4 Today Z00.00 - Encounter for general adult medical examination without abnormal findings Complete Blood Count Auto Diff Today Z00.00 - Encounter for general adult medical examination without abnormal findings Microalbumin, Random (w Creat) Today Z00.00 - Encounter for general adult medical examination without abnormal findings UA CC w/rflx Micro + Cult Today Z00.00 - Encounter for general adult medical examination without abnormal findings Vitamin D 25-OH Total Today Z00.00 - Encounter for general adult medical examination without abnormal findings Referrals MANAGER OF IT Referral N92.6 - Irregular menstruation, unspecified, Z12.4 - Encounter for screening for malignant neoplasm of cervix Medical Weight Management Referral E66.01 - Morbid (severe) obesity due to excess calories, Z68.41 - Body mass index [BMI] 40.0-44.9, adult
[2025-02-08 08:47] VITALS: BP 128/71; PULSE 74; RESP 16; TEMP 36.7; O2SAT 100; BMI 41.6
== END 2025-02-08 09:38 | disposition home or self-care (01) ==
PROVIDERS: PCP Nurse Practitioner Family; Visit Provider Nurse Practitioner Family
DX: Z00.00 Encounter for general adult medical examination without abnormal findings (principal); N92.6 Irregular menstruation, unspecified; E66.01 Morbid (severe) obesity due to excess calories; Z68.41 Body mass index [BMI] 40.0-44.9, adult; Z72.89 Other problems related to lifestyle

== ENCOUNTER → 2025-02-08 08:37 | Outpatient (BNVA) | payer OTHER, SELFPAY | PROVIDERS: PCP Nurse Practitioner Family; Visit Provider Nurse Practitioner Family | DX: Z00.00 Encounter for general adult medical examination without abnormal findings (principal); E66.01 Morbid (severe) obesity due to excess calories; N92.6 Irregular menstruation, unspecified; Z72.89 Other problems related to lifestyle; Z68.41 Body mass index [BMI] 40.0-44.9, adult | CPT/HCPCS: 96127 ==

== ENCOUNTER 2025-02-18 14:03 | Outpatient (REF) | payer OTHER, SELFPAY ==
[2025-02-18 14:26] LABS: MANUAL DIFF FLAG NO
[2025-02-18 14:58] LABS: Hematocrit 36.2 % (37.0-47.0); Hemoglobin 12.3 g/dl (12.0-16.0); Imm Gran Abs Auto 0.03 X10*3/uL (0.00-0.03); Imm Gran Pct Auto 0.4 % (0.0-0.4); Lymphocytes Absolute Auto 2.8 X10*3/uL (1.2-4.9); Mean Corpuscular HGB Conc 34.0 g/dl (31.0-35.0); Mean Corpuscular Hemoglobin 28.9 pg (27.0-33.0); Mean Corpuscular Volume 85.2 fL (80.0-98.0); NRBC Abs Auto 0.000 X10*3/uL (0.0-0.012); NRBC Pct Auto 0.0 /100WBC (0.0-0.2); Platelet Count 302 X10*3/uL (160-400); Red Blood Count 4.25 X10*6/uL (4.20-5.50); White Blood Count 8.4 X10*3/uL (4.8-10.8)
[2025-02-18 17:00] LABS: Alanine Aminotransferase 37 U/L (0-31); Albumin Level 4.2 g/dL (3.5-5.0); Alkaline Phosphatase 82 U/L (39-117); Anion Gap 12 (12-20); Aspartate Amino Transferase 30 U/L (5-31); Blood Urea Nitrogen 7 mg/dL (9-16); Calcium 8.8 mg/dL (8.4-10.2); Carbon Dioxide 22 mmol/L (22-29); Chloride 108 mmol/L (96-108); Cholesterol 156 mg/dL (<200); Estimated Glomerular Filt Rate > 60; HDL Cholesterol 42 mg/dL (>40); Potassium 3.4 mmol/L (3.3-5.1); Sodium 139 mmol/L (135-145); Total Protein 6.8 g/dL (6.5-8.0); Triglycerides 95 mg/dL (<150)
== END 2025-02-18 14:04 | disposition home or self-care (01) ==
LOC: HO.LAB 14:03
PROVIDERS: PCP Nurse Practitioner Family; Visit Provider Nurse Practitioner Family
DX: Z00.00 Encounter for general adult medical examination without abnormal findings (principal); Z13.29 Encounter for screening for other suspected endocrine disorder; Z13.6 Encounter for screening for cardiovascular disorders
CPT/HCPCS: 36415; 80053; 80061; 82306; 84443; 85025

== ENCOUNTER 2025-02-26 15:34 | Outpatient (AMB) | payer OTHER, SELFPAY ==
--- NOTE | 2025-02-26 15:14 | A.OFFPC_ITS ---
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 Required: No Is last menstrual period known: Yes Last menstrual period: 02/21/25 Post menopausal: No Patient : No Allergies No Known Allergies Allergy (Verified 02/26/25 15:32) Tobacco use date assessed: 02/26/25 Dental Screening Dental Screen Date: 02/26/25 Did you have a dental visit in the last 12 months?: Yes Did you have a dental problem in the last 6 months where you did not have access to dental care?: No Was dental information given to patient?: Patient has dentist HPI HPI Comments History of Present Illness Details 25-year-old female [facility] review of recent lab results. She offers no complaints and denies acute symptoms at this time. She did not perform urinalysis/culture and urine microalbumin lab work. [facility] Medical History (Updated 02/26/25 @ 15:15 by Miguel Felder CNP) Gall bladder disease Personal history of endometriosis Family History (Updated 02/08/25 @ 09:00 by HELEN Anaya) Mother History of ovarian cancer Hx of primary hypertension Hx of heart valve replacement with mechanical valve Alcohol abuse Asthma High blood pressure Cardiovascular disease Father Alcohol abuse Brother Asthma Testicular cancer Maternal Grandmother High blood pressure Cardiovascular disease Cancer Maternal Grandfather High blood pressure High cholesterol Cancer Paternal Grandmother High blood pressure Skin cancer Paternal Grandfather Cancer Social History (Updated 02/08/25 @ 08:47 by HELEN Anaya) Housing: House Alcohol intake: former Patient Tobacco Use Status: Former Tobacco user Tobacco use type: Cigarette Cigarettes Per Day: 3 Years Smoked: 5 e-Cigarette/Vaping Use: Currently Using Second Hand Smoke Exposure: No service: No Current occupational status: employed 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 Current occupational exposures/hazards: No Sexual orientation: Straight/Heterosexual Gender identity: Female Cognitive needs: No Hearing needs: No Vision needs: Yes Female Reproductive History Menstrual Age of Menarche: 12 Date of last menstrual period: 02/21/25 Questionnaire Thrive Questionnaire Date Thrive assessed: 02/01/25 I am a: Patient What is your living situation today?: I have a steady place to live Within the past 12 months, did the food you bought not last and you didn't have the money to get more?: Sometimes True Within the past 12 months, did you worry whether your food would run out before you got money to buy more?: Sometimes True Do you have trouble paying for medicines?: No Do you have trouble getting transportation to medical appointments?: No Do you have trouble paying your heating and electricity bill?: No Do you have trouble taking care of your child, family member or friend?: No Do you have trouble with day-to-day activities such as bathing, preparing meals, shopping, managing finances, etc.?: No Are you currently unemployed and looking for a job?: No Are you interested in more education?: No Please select the resources that you would like help with: None Currently or been in a relationship where the following occur: No concerns reported THRIVE Score: 2 CLEMENCIA-7 AMB Questionnaire CLEMENCIA-7 Date CLEMENCIA - 7 assessed: 02/08/25 Source: Developed by Drs. Sotero Medrano, Haylie Murillo, Ceferino Vaughn and colleagues, with an educational judy from [employer]. Review of Systems Const Details: Denies chills, Denies fatigue, Denies fever(s), Denies headache(s) and Denies weakness Cardiac Denies chest pain, Denies claudication, Denies leg edema, Denies lightheadedness, Denies palpitations, Denies dyspnea, Denies dyspnea on exertion, Denies orthopnea and Denies other (Loss of consciousness) Resp Denies cough, Denies excessive phlegm production, Denies dyspnea, Denies dyspnea on exertion, Denies snoring and Denies wheezing Physical exam (Primary Care) Tobacco/Smoking Status: Tobacco use Status Tobacco use date assessed 02/08/25 02/26/25 15:18 Patient Tobacco Use Status Former Tobacco user 02/26/25 15:18 Tobacco use type Cigarette 02/26/25 15:18 e-Cigarette/Vaping Use Currently Using 02/26/25 15:18 Thrive Assessment: Date of Thrive Assessment Date Thrive assessed 02/01/25 02/26/25 15:18 Currently or been in a relationship where the following occur: No concerns reported Const Other: Patient is alert and oriented x3 Telehealth Telehealth Telehealth Platform: Telephone Location of provider rendering services: practice address Location of patient: address on file Patient Identification confirmed using: Name, : Yes Telehealth method: voice only Patient verbally consented to treatment: Yes Patient verbally consented to billing insurance company: Yes Patient informed of any privacy concerns related to visit: Yes Coding Level of Care Code Tele Est Pt Level 3 (40423) Diagnoses Vitamin D deficiency E55.9 Elevated ALT measurement R74.01 Time Spent (min) 10 Assessment & Plan Assessment & Plan (1) Vitamin D deficiency: Code(s): E55.9 - Vitamin D deficiency, unspecified Category: Medical Plan: Recent vitamin-D level is significantly low, 17.2. Vitamin D3 50 mcg daily ordered; advised to take as prescribed. Repeat vitamin-D level a few days before next visit. Encouraged to perform urinalysis/culture and urine microalbumin lab work before next visit. Follow-up for a telehealth visit in 6 weeks. Return sooner with symptoms or concerns. Verbalized understanding and agreed with plan. (2) Elevated ALT measurement: Code(s): R74.01 - Elevation of levels of liver transaminase levels Category: Medical Plan: Recent ALT level is slightly low, 37, AST is normal. Healthy diet/weight management encouraged. Will monitor liver panel annually or as needed. Verbalized understanding and agreed with the plan. Orders: Orders Vitamin D 25-OH Total 6 Weeks E55.9 - Vitamin D deficiency, unspecified Medications: New cholecalciferol (vitamin D3) 50 mcg PO DAILY 90 tabs 3RF 90 days
--- OUTSIDE RECORDS SUMMARY | 2025-02-26 19:54 | XMS_ITS | Data Portability ---
Author Organization [facility] Diaz [facility] [address] Address [address] [place] [address] Assessment No assessment recorded. Plan of Treatment Reminders Order Date Submit Date Provider Last Modified By Organization Details Last Modified Time Details Appointments None recorded. Lab rapid strep group A, throat 2022 023 [email or web address] [facility], [address] [place] [address], [id number], 10:23:54 Referral None recorded. Procedures None recorded. Surgeries None recorded. Imaging None recorded. Medication Orders Aplisol 5 tub. unit/0.1 mL intradermal injection solution 2022 023 [email or web address] [id number], [address] [place], [address], 09:07:37 amoxicillin 500 mg tablet 2022 023 [email or web address] [id number], [address] [place], [address], 10:23:57 Patient TargetsNo targets recorded. Patient Instructions Encounter Date Encounter Id Patient Instructions Last Modified By Organization Details Last Modified Time 06/05/2022 [id number] strep throat: ca re instructions [email or web address] Not available 06/05/2022 10:23:54 Based on your Presentation, Exam, and Lab Testing you are being diagnosed with Strep Throat. Your Rapid Strep Test was positive. I am going to prescribe you and antibiotic to cover this infection. Please be sure to complete the full course of this antibiotic to prevent antibiotic resistance. It is also important to complete this antibiotic because this infection is what causes Scarlet Fever/Rheumatic Heart Disease. Antibiotics will typically take 4-5 days to start to work with symptom improvement. The following are my other recommendations to help with symptoms and is important for this diagnosis: 1. Do not share any food or drinks - strep is passed through direct saliva exchange (NOT IN THE AIR) 2. Change your toothbrush in 3-4 days so that you don't re-infect yourself after you complete the antibiotic. 3. Take Ibuprofen or Tylenol if you do not have any allergies to these medications. If you take a blood thinner you should not take NSAIDS like Ibuprofen. These medication will help with the inflammation in your respiratory tract which should help the cough. 4. Do not take any Cold Medications that have a Decongestant in it - this will dry out your throat and make the sore throat worse. 5. Drinking Hot Tea with honey can help coat and soothe your throat. 6. You would be considered contagious for the next 24-48 hours, or until fever resolves. I would be seen again if you develop any of the following symptoms. 1. Fever > 101.0 2. Stiff neck - where you can't turn your neck 3. Trouble swallowing your saliva - drooling 4. Swelling of a lymph node in your throat that is painful to touch 5. Difficulty breathing 6. Severe Headache Thank you for using [facility] today, please feel free to contact our office if you have any questions or concerns. [email or web address] Not available 06/05/2022 10:17:23 Reason for Referral None Reported. Results Created Date Observation Date Name Description Value Unit Range Abnormal Flag Note LastModifiedBy Organization Detail LastModifiedTime 06/05/1906/05/2022 rapid strep group A, throa t Unknown Analyte Normal = Negati ve Not Available [facility] [address] [place], [address], 06/05/2022 09:49:35 06/05/1906/05/2022 rapid strep group A, throa t Unknown Analyte positi ve Not Available [id number] [facility] [address] [place], [address], 06/05/2022 09:49:35 Result Notes None recorded. Problems No Known Problems Procedures Surgical History Date Name Laterality Status Provider Name and Address Organization Details Recorded Time 3 OC- Physical completed Heather Tovar [facility] 12/17/2022 08:58:19 Imaging Results None recorded. Procedure Notes None recorded. Medical Equipment None Reported. Allergies No known drug allergies Medications Name Sig Start Date Stop Date Status Note LastModified by Organization Details LastModified Time Aplisol 5 tub. unit/0.1 mL intraderma l injection solution Inject 0.1 mL by intraderm al route. 2022 active Billable units for PPD is one. Units are not the dose. Not Available Not Available Not Available amoxicilli n 500 mg tablet Take 1 tablet 3 times a day by oral route for 10 days. 2022 active Not Available Not Available Not Avai lable Sronyx 0.1 mg-20 mcg tablet TAKE 1 TABLET BY MOUTH EVERY DAY active Not Available Not Available No t Available Vitals Date Recorded Body height Body mass index (BMI) Body weight Respiratory rate Pain severity - 0-10 verbal numeric rating [Score] - Reported Body temperature Heart rate Oxygen saturation Oxygen saturation in Arterial blood by Pulse oximetry Systolic And Diastolic Provider Name and Address Organization Details Last Updated DateTime 3 162.56 cm 38.3 kg/m2 806648. 1 g 20 /min 7 98.9 [degF] 85 /min 100 % 100 % 133/84 mm[Hg] Jenny Morgan PA - [facility] 3 09:52:18 Social History Question Answer Notes LastModified by Aiotra Details LastModified Time Tobacco Smoking Status Current Every Day Smoker Jenny ta PA - [facility] 06/05/2022 09:50:34 Have You Had Direct Contact, Or Contact During Intimacy, With Monkeypox Rash, Scabs, Or Body Fluids From A Person With Monkeypox? No Information not available 06/05/2022 How Much Tobacco Do You Smoke? 1 PPW Information not available 06/05/2022 Have You Recently Traveled Abroad? No Information not available 06/05/2022 Sex: Unknown Functional Status Question Answer Note LastModified by Organizat ion Details LastModified Time Do you use any illicit or recreational drugs? No Information not available 06/05/2022 Do you or have you ever used any other forms of tobacco or nicotine? No Information not available 06/05/2022 What is your level of alcohol consumption? None Information not available 06/05/2022 Mental Status None recorded. Family History Relationship Description Onset Age of this Age Resolved Age Notes LastModified by Organization Details LastModified Time Father No current problems or disability Not available 06/05 09:50:29 Mother No current problems or disability Not available 06/05 09:50:29 Medical History No medical history recorded. Gynecological HistoryNo gynecological history recorded. Obstetrics History GPAL:G 0 P 0 0 0 0 Immunizations Vaccine Type Date Status Note Provider Nam e and Address Organization Details Recorded Time IPV 0 completed Jenny [place] null, PA - [facility] 06/05/2022 09:50:19 IPV 0 completed Jenny [place] null, PA - [facility] 06/05/2022 09:50:19 IPV 3 completed Jenny Eddie null, PA - [facility] 06/05/2022 09:50:19 IPV 9 completed Jenny [place] null, PA - [facility] 06/05/2022 09:50:19 MMR 3 completed Jenny Eddie null, PA - [facility] 06/05/2022 09:50:19 MMR 0 completed Jenny [place] null, PA - [facility] 06/05/2022 09:50:19 pneumococcal conjugate PCV 7 1 completed Jenny Eddie null, PA - [facility] 06/05/2022 09:50:19 pneumococcal conjugate PCV 7 0 completed Jenny [place] null, PA - [facility] 06/05/2022 09:50:19 pneumococcal conjugate PCV 7 0 completed Jenny [place] null, PA - [facility] 06/05/2022 09:50:19 Tdap 1 completed Jenny Eddie null, PA - [facility] 06/05/2022 09:50:19 Tdap 2 completed Jenny Eddie null, PA - [facility] 06/05/2022 09:50:19 varicella 0 completed Jenny Eddie null, PA - [facility] 06/05/2022 09:50:19 varicella 0 completed Jenny [place] null, PA - [facility] 06/05/2022 09:50:19 HPV, quadrivalent 2 completed Jenny Eddie null, PA - [facility] 06/05/2022 09:50:19 HPV, quadrivalent 4 completed Jenny [place] null, PA - [facility] 06/05/2022 09:50:19 HPV, quadrivalent 4 completed Jenny [place] null, PA - [facility] 06/05/2022 09:50:19 Hep B, adolescent or pediatric 0 completed Jenny [place] null, PA - [facility] 06/05/2022 09:50:19 Hep B, adolescent or pediatric 1 completed Jenny Eddie null, PA - [facility] 06/05/2022 09:50:19 Hep B, adolescent or pediatric 0 completed Jenny Eddie null, PA - [facility] 06/05/2022 09:50:19 Hib (HbOC) 0 completed Jenyn [place]ry[place] null, PA - [facility] 06/05/2022 09:50:19 Hib (HbOC) 0 completed Jenny [place] null, PA - [facility] 06/05/2022 09:50:19 Hib (HbOC) 9 completed Jenny [place] null, PA - [facility] 06/05/2022 09:50:19 Hib (HbOC) 0 completed Jenny Eddie null, PA - [facility] 06/05/2022 09:50:19 meningococcal MCV4P 2 completed Jenny [place] null, PA - [facility] 06/05/2022 09:50:19 DTaP 0 completed Jenny [place]ry[place] null, PA - [facility] 06/05/2022 09:50:19 DTaP 0 completed Jenny [place] null, PA - [facility] 06/05/2022 09:50:19 DTaP 1 completed Jenny [place] null, PA - [facility] 06/05/2022 09:50:19 DTaP 4 completed Jenny Eddie null, PA - [facility] 06/05/2022 09:50:19 DTaP 9 completed Jenny [place] null, PA - [facility] 06/05/2022 09:50:19 Past Encounters Encounter ID Performer Location Encounter Start Date Encounter Closed Date Diagnosis/Indication Diagnosis SNOMED-CT Code Diagnosis ICD10 Code Diagnosis IMO Codes Diagnosis Note [id number] [address] [facility] [address] [place] [address] 02/06/2019 13:20:48 02/06/2019 14:26:57 [id number] PHIL MACDONALD [address] [address] [place] [address] 06/05/2022 08:56:46 06/05/2022 10:25:29 Streptococcal sore throat 39720342 J02.0 [id number] [place] [address] [place] [address] 12/17/2022 08:08:07 12/17/2022 09:12:52 Tuberculosis screening 628692739 Z11.1 Health Concerns Section Related Observation LastModified by Organization Detai ls LastModified Time None Recorded Concern Status LastModified by Organization Details LastModified Time None Recorded Advance Directives Directive None Recorded Payers Insurance Date Sequence Insurance Name Policy Number Policy Spears Covered Member ID Spears Member ID Guarantor Name 12/17/2022 OC-ESCREEN Escreen OTHER Va nigel Valiente 12/17/2022 1 [facility] (MEDICAID HMO) [id number] Cammy Valiente [id number] Cammylorri Valiente Notes Date Note Type Note Provider Name and Address Organization Details Recorded Time 3 text/html Sore throatReported by PatientSore ThroatFor associated symptoms, patient reportssore throatandnauseabut reportsno cough,no sputum production,no shortness of breath,no wheezing,no sinus pain,no vomiting, andno hoarseness(right ear pain). For context, patient reportssick contact. For source of patient information, patient reportsinformation obtained from patientandpatient arrived at urgent care ambulatory. For location, patient reportsthroat. For severity, patient reportsmoderate. For quality, patient reportsburningandhurts to swallow. For onset/timing, patient reports3 days.Worst sore throat ever. 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 PHIL MACDONALD [facility] [place], [address], [place] - [facility] 06/05/2022 10:25:50 OBGyn Episode No OBEpisode recorded.
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
== END 2025-02-26 16:24 | disposition home or self-care (01) ==
LOC: HO.HMCFM 15:35
PROVIDERS: PCP Nurse Practitioner Family; Visit Provider Nurse Practitioner Family
DX: E55.9 Vitamin D deficiency, unspecified (principal); R74.01 Elevation of levels of liver transaminase levels

== ENCOUNTER 2025-04-04 08:45 | Outpatient (REF) | payer OTHER, SELFPAY ==
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
[2025-04-04 10:05] LABS: Appearance Urine Clear; Glucose Urine UA Negative (Negative); PH 6.5 (5.0-9.0); Specific Gravity - Urine <= 1.005 (1.005-1.025)
== END 2025-04-04 08:46 | disposition home or self-care (01) ==
LOC: HO.LAB 08:45
PROVIDERS: PCP Nurse Practitioner Family; Visit Provider Nurse Practitioner Family
DX: Z00.00 Encounter for general adult medical examination without abnormal findings (principal); E55.9 Vitamin D deficiency, unspecified
CPT/HCPCS: 36415; 81003; 82043; 82306; 82570